=== PATIENT | male | born 1950 | race Caucasian/White ===

== ENCOUNTER 2016-06-06 13:16 | Emergency (ER) | payer SELFPAY ==
--- NOTE | 2016-06-06 13:42 | Emergency Department Report ---
Entered by MICAH HENSON, acting as scribe for SLICK MEJIA PA. Chief Complaint: Head Injury Stated Complaint: HEAD INJURY Time Seen by Provider: 06/06/16 13:33 - HPI History of Present Illness: Patient presents to the ED c/o a head injury that occurred this morning at 09: 00. Pt states that he was at his care home when he slipped on water, and subsequently fell and hit the back of his head. Denies any dizziness. Denies LOC at time of injury. Denies headache. Denies neck pain. Reports EMS cleaned the head laceration after the incident, but notes the laceration is still bleeding. Reports left elbow/arm pain. - ROS Review of Systems: All system are negative unless stated in HPI above. - Exam Vital Signs: Vital Signs 06/06/16 13:23 Temperature 97.5 F L Pulse Rate 96 H Respiratory 18 Rate Blood Pressure 124/80 O2 Sat by Pulse 98 Oximetry Physical Exam: General: well nourished, well developed, nontoxic in appearance, in no acute distress Head: laceration to occipital area Neck: nontender, FROM. Neurologic: A&O x 3, GCS 15. Speech is clear and fluid. Unsteady gait Extremities: left elbow swollen and TTP with small laceration. No cyanosis or clubbing. MSE screening note: Focused history and physical exam performed. Due to findings the following was ordered: ED Medical Decision Making - Medical Decision Making Medical decision making: Patient seen by provider in triage area. Appropriate protocol activated and patient to main ED to be seen by provider ED Disposition for MSE Condition: Stable This documentation as recorded by the scribe,MICAH HENSON,accurately reflects the service I personally performed and the decisions made by ,SLICK MEJIA PA.
--- NOTE | 2016-06-06 13:58 | Cat Scan Report ---
CT HEAD WITHOUT CONTRAST: HISTORY: Closed head injury, unsteady gait. Serial contiguous axial images were obtained through the cranium. Intravenous contrast material was not administered. The ventricles are normal in size and appearance. There is no mass effect or midline shift. No areas of abnormally increased or decreased attenuation are seen. No mass lesion is seen. The mastoid air cells and visualized portions of the sinuses are normal. Left parietal soft tissue swelling is noted. IMPRESSION: No acute intracranial process.
[2016-06-06 14:08] LABS: Urine Drugs of Abuse Note Disclamer
[2016-06-06 14:19] LABS: Basophils % (Auto) 0.7 % (0.0-1.8); Eosinophils % (Auto) 0.4 % (0.0-4.3); Hematocrit 39.5 % (35.5-45.6); Hemoglobin 13.4 gm/dl (11.8-15.2); Mean Corpuscular HGB Conc 34 % (32-34); Mean Corpuscular Hemoglobin 32 pg (28-32); Mean Corpuscular Volume 94 fl (84-94); Platelet Count 278 K/mm3 (140-440); Red Blood Count 4.22 M/mm3 (3.65-5.03); Red Cell Distribution Width 14.7 % (13.2-15.2); White Blood Count 11.6 K/mm3 (4.5-11.0)
[2016-06-06 14:26] LABS: Bilirubin,Urine NEG (Negative); Blood,Urine SM (Negative); Ketones,Urine NEG (Negative); Leukocyte Esterase,Urine NEG (Negative); Nitrite,Urine NEG (Negative); Urobilinogen,Urine < 2.0 mg/dL (<2.0); WBC,Urine < 1.0 /HPF (0.0-6.0)
[2016-06-06 14:29] LABS: INR 0.93 (0.87-1.13)
[2016-06-06 15:09] VITALS: BP 119/68
[2016-06-06] MEDS ORDERED: NORCO 5/325 PO ONE (15:11)
--- NOTE | 2016-06-06 15:15 | Emergency Department Report ---
ED Fall HPI - General Chief Complaint: Head Injury Stated Complaint: HEAD INJURY Time Seen by Provider: 06/06/16 13:33 Source: patient Mode of arrival: Ambulatory Limitations: No Limitations - History of Present Illness Initial Comments: 66-year-old male presents to the emergency department after sustaining a fall at the senior care. Patient states that he slipped on some water and fell backwards, hitting his head on the floor. There was no loss of consciousness. Incident occurred at approximately 9 AM this morning. EMS was called but the patient was not initially transported to the emergency department. Patient was brought to the emergency department because wound on the back of his head was continuing to bleed. Patient is also complaining of pain in his left arm. He states he hit the arm when he fell. Patient denies lightheadedness, nausea, vomiting, or headache. There are no other complaints. MD Complaint: fall -: Sudden, This morning Time: 09:00 Fall From: standing When Fall Occurred: 4-6 hours SECURITY CONSULTANT Fall Witnessed: yes, by living facility s Place Fall Occurred: other (senior care) Loss of Consciousness: none Prolonged Down Time?: no Symptoms Prior to Fall: none Location: head Location - Extremities: Left: Elbow Severity: mild Severity scale (0 -10): 4 Quality: aching Context: tripped/slipped Associated Symptoms: denies - Related Data Previous Rx's Medication Instructions Recorded Last Taken Type HYDROcodone/APAP 5-325 [[place] 1 each PO Q6HR PRN #14 tablet 06/06/16 Unknown Rx 5/325] Allergies Allergy/AdvReac Type Severity Reaction Status Date / Time No Known Allergies Allergy Unverified 06/06/16 13:28 ED Review of Systems ROS: Stated complaint: HEAD INJURY Other details as noted in HPI Comment: All other systems reviewed and negative Musculoskeletal: as per HPI, arthralgia ED Past Medical Hx - Past Medical History Previous Medical History?: Yes Hx Psychiatric Treatment: Yes (schizphrenia) - Surgical History Past Surgical History?: No - Family History Family history: no significant - Social History Smoking Status: Current Every Day Smoker Substance Use Type: None - Medications Home Medications: Home Medications Medication Instructions Recorded Confirmed Last Taken Type HYDROcodone/APAP 5-325 [[place] 1 each PO Q6HR PRN #14 tablet 06/06/16 Unknown Rx 5/325] ED Physical Exam - General Limitations: No Limitations General appearance: alert, in no apparent distress - Head Head exam: Present: normocephalic, other (abrasion noted to the occipital scalp , no active bleeding) - Eye Eye exam: Present: normal appearance, PERRL, EOMI - ENT ENT exam: Present: normal exam, normal orophraynx, mucous membranes moist - Neck Neck exam: Present: normal inspection, full ROM. Absent: tenderness - Respiratory Respiratory exam: Present: normal lung sounds bilaterally. Absent: respiratory distress - Cardiovascular Cardiovascular Exam: Present: regular rate, normal rhythm, normal heart sounds - GI/Abdominal GI/Abdominal exam: Present: soft, normal bowel sounds. Absent: distended, tenderness - Extremities Exam Extremities exam: Present: normal inspection, full ROM. Absent: tenderness - Back Exam Back exam: Present: normal inspection, full ROM. Absent: tenderness - Neurological Exam Neurological exam: Present: alert, oriented X3. Absent: motor sensory deficit - Skin Skin exam: Present: warm, dry, intact ED Course Vital Signs 06/06/16 06/06/16 13:23 15:08 Temperature 97.5 F L Pulse Rate 96 H 90 Respiratory 18 17 Rate Blood Pressure 124/80 Blood Pressure 119/68 [Left] O2 Sat by Pulse 98 100 Oximetry ED Medical Decision Making - Lab Data Result diagrams: 06/06/16 13:43 - Radiology Data Radiology results: image reviewed CT of the head shows no acute intracranial abnormality. - Medical Decision Making Imaging results reviewed and discussed with the patient and senior care employee. There is no active bleeding at this time. Head wound will be cleaned and a new dressing applied. Patient will be discharged back to the senior care at this time. - Differential Diagnosis brazen, contusion, closed head injury, subdural hematoma Critical care attestation.: If time is entered above; I have spent that time in minutes in the direct care of this critically ill patient, excluding procedure time. ED Disposition Clinical Impression: Scalp contusion Qualifiers: Encounter type: initial encounter Qualified Code(s): S00.03XA - Contusion of scalp, initial encounter Disposition: DISCHARGED TO HOME OR SELFCARE Is pt being admited?: No Condition: Stable Instructions: Scalp Contusion in Adults (ED) Prescriptions: HYDROcodone/APAP 5-325 [[place] 5/325] 1 each PO Q6HR PRN #14 tablet PRN Reason: Pain Referrals: PRIMARY CARE, [Primary Care Provider] - 3-5 Days Time of Disposition: 15:18
== END 2016-06-06 15:30 | disposition home or self-care (01) ==
LOC: ED 13:16
DX: S00.03XA Contusion of scalp, initial encounter (principal); F20.9 Schizophrenia, unspecified; F17.200 Nicotine dependence, unspecified, uncomplicated; W19.XXXA Unspecified fall, initial encounter; Y93.89 Activity, other specified; Y99.9 Unspecified external cause status; Y92.410 Unspecified street and highway as the place of occurrence of the external cause
CPT/HCPCS: 36415; 70450; 80307; 81001; 85025; 85610; 85730; 99284; G0480; 80320

== ENCOUNTER 2016-07-29 09:18 | Inpatient (IN) | payer MEDICARE ==
[2016-07-29] MEDS ORDERED: NACL 0.9% 1000 ML 1,000 ML IV ONE (10:00)
[2016-07-29 10:37] LABS: Basophils % (Auto) 0.6 % (0.0-1.8); Mean Corpuscular HGB Conc 36 % (32-34); Mean Corpuscular Hemoglobin 33 pg (28-32); Mean Corpuscular Volume 90 fl (84-94); Platelet Count 327 K/mm3 (140-440); Red Blood Count 4.05 M/mm3 (3.65-5.03); Red Cell Distribution Width 14.6 % (13.2-15.2); White Blood Count 19.7 K/mm3 (4.5-11.0)
[2016-07-29 10:41] LABS: Hematocrit 36.6 % (35.5-45.6); Hemoglobin 13.3 gm/dl (11.8-15.2)
[2016-07-29 10:46] LABS: INR 1.07 (0.87-1.13)
[2016-07-29 10:49] LABS: Partial Thromboplastin Time 27.4 Sec. (24.2-36.6)
[2016-07-29 10:58] LABS: Alanine Aminotransferase 16 units/L (7-56); Albumin 3.4 g/dL (3.9-5); Albumin/Globulin Ratio 1.2 %; Alkaline Phosphatase 65 units/L (35-129); Anion Gap 18 mmol/L; Blood Urea Nitrogen 10 mg/dL (9-20); Calcium 8.2 mg/dL (8.4-10.2); Carbon Dioxide 22 mmol/L (22-30); Chloride 75.8 mmol/L (98-107); Glucose 132 mg/dL (75-100); Lipase 24 units/L (13-60); Potassium 4.2 mmol/L (3.6-5.0); Total Protein 6.3 g/dL (6.3-8.2)
--- NOTE | 2016-07-29 11:16 | Emergency Department Report ---
ED GI Bleed HPI - General Chief complaint: GI Bleed Stated complaint: FALL/EMESIS Time Seen by Provider: 07/29/16 10:27 Source: patient, EMS, RN notes reviewed Mode of arrival: Stretcher Limitations: Other - History of Present Illness Initial comments: 66-year-old male presents to the emergency department via EMS from a local [facility] for evaluation of vomiting blood. Per report, the patient had an unwitnessed fall last night. This morning, patient reportedly vomited 2 times containing coffee-ground emesis. Patient states that he did vomit twice, but denies seeing any blood. Patient denies pain. There are no other complaints. MD complaint: coffee ground emesis -: Gradual, This morning Radiation: none Severity scale (0 -10): 0 Quality: painless Consistency: now resolved Improves with: none Worsens with: none Associated Symptoms: denies other symptoms Treatments Prior to Arrival: none - Related Data Previous Rx's Medication Instructions Recorded Last Taken Type Benztropine [Cogentin] 0.5 mg PO HS #30 tablet 07/27/16 Unknown Rx HYDROcodone/APAP 5-325 [[place] 1 each PO Q6HR PRN #14 tablet 07/27/16 Unknown Rx 5-325 mg TAB] risperiDONE [RisperDAL] 0.5 mg PO HS #30 tablet 07/27/16 Unknown Rx Allergies Allergy/AdvReac Type Severity Reaction Status Date / Time No Known Allergies Allergy Unverified 06/06/16 13:28 ED Review of Systems ROS: Stated complaint: FALL/EMESIS Other details as noted in HPI Comment: All other systems reviewed and negative Gastrointestinal: hematemesis ED Past Medical Hx - Past Medical History Previous Medical History?: Yes Hx Hypertension: Yes Hx Psychiatric Treatment: Yes (schizphrenia) Additional medical history: Metabolic encephalopathy - Surgical History Past Surgical History?: No - Family History Family history: no significant - Social History Smoking Status: Unknown if ever smoked - Medications Home Medications: Home Medications Medication Instructions Recorded Confirmed Last Taken Type Benztropine [Cogentin] 0.5 mg PO HS #30 tablet 07/27/16 Unknown Rx HYDROcodone/APAP 5-325 [[place] 1 each PO Q6HR PRN #14 tablet 07/27/16 Unknown Rx 5-325 mg TAB] risperiDONE [RisperDAL] 0.5 mg PO HS #30 tablet 07/27/16 Unknown Rx ED Physical Exam - General Limitations: Other General appearance: alert, in no apparent distress - Head Head exam: Present: atraumatic, normocephalic - Eye Eye exam: Present: normal appearance, PERRL, EOMI - ENT ENT exam: Present: normal orophraynx, mucous membranes moist, other (poor dentition) - Neck Neck exam: Present: normal inspection, full ROM. Absent: tenderness - Respiratory Respiratory exam: Present: normal lung sounds bilaterally. Absent: respiratory distress - Cardiovascular Cardiovascular Exam: Present: regular rate, normal rhythm, normal heart sounds - GI/Abdominal GI/Abdominal exam: Present: soft, normal bowel sounds. Absent: distended, tenderness - Extremities Exam Extremities exam: Present: full ROM, other (skin tear noted to the ulnar aspect of the right forearm. No active bleeding is noted.). Absent: tenderness - Back Exam Back exam: Present: normal inspection, full ROM. Absent: tenderness - Neurological Exam Neurological exam: Present: alert. Absent: oriented X3 (patient is alert to person only.), motor sensory deficit - Skin Skin exam: Present: warm, dry, intact ED Medical Decision Making - Lab Data Result diagrams: 07/29/16 10:20 07/29/16 10:20 - EKG Data -: EKG Interpreted by Me EKG shows normal: sinus rhythm, axis, intervals, QRS complexes Rate: normal - EKG Data When compared to previous EKG there are: previous EKG unavailable Interpretation: nonspecific ST-T wave niki - Radiology Data Radiology results: report reviewed, image reviewed CT of the head and cervical spine reveal no acute traumatic injuries. - Medical Decision Making Lab and imaging results reviewed. Patient noted to be profoundly hyponatremic. Labs were obtained prior to IV placement for IV fluids. Review of previous labs show that the patient has had normal to low-normal sodiums. He had blood drawn yesterday in the fdc showing a sodium of 121. There has been no further emesis. A Kyburz-Blatchford score of 0 was calculated. Will contact the hospitalist for admission. - Differential Diagnosis GI bleed, gastritis, anemia, closed head injury Critical care attestation.: If time is entered above; I have spent that time in minutes in the direct care of this critically ill patient, excluding procedure time. ED Disposition Clinical Impression: Acute hyponatremia Disposition: OP ADMIT IP TO THIS HOSP Is pt being admited?: Yes Condition: Stable Referrals: PRIMARY CARE, [Primary Care Provider] - 3-5 Days Forms: Accompanied Note Time of Disposition: 13:08
[2016-07-29 11:17] LABS: Sodium 111 mmol/L (137-145)
--- NOTE | 2016-07-29 11:57 | Cat Scan Report ---
CT HEAD WITHOUT CONTRAST: HISTORY: Head injury. Serial contiguous axial images were obtained through the cranium. Intravenous contrast material was not administered. The ventricles are normal in size and appearance. There is no mass effect or midline shift. No areas of abnormally increased or decreased attenuation are seen. No mass lesion is seen. The mastoid air cells and visualized portions of the sinuses are normal. IMPRESSION: Cranial CT scan within normal limits. No change since 07/15/16.
--- NOTE | 2016-07-29 12:07 | Cat Scan Report ---
CT SCAN OF THE CERVICAL SPINE: HISTORY: Neck injury after fall. TECHNIQUE: Contiguous 1.25 mm axial images of the cervical spine were obtained. Sagittal and coronal reformatted images. FINDINGS: There is normal alignment of the cervical spine. The body, pedicles and posterior ligaments appear normal. No evidence of fracture or subluxation is seen. There is moderate circumferential spurring and disc space narrowing at C5-6 and C6-7. There is moderate left neural foraminal narrowing at these levels estimated at 50%. The remaining levels are within normal limits. The spinal canal appears normal. The prevertebral soft tissues appear normal. IMPRESSION: Cervical spondylosis. No acute process is noted.
--- NOTE | 2016-07-29 13:00 | Admit Criteria Form ---
Admission Criteria Documentation: HYPONATREMIA; HYPERNATREMIA; HYPOKALEMIA; HYPERKALEMIA; HYPOCALCEMIA; HYPERCALCEMIA Clinical Indications for Inpatient Care (Place 'X' for any and all applicable criteria): Ongoing inpatient care may be indicated for ANY ONE of the following [G](1)(2)(3 )(5): [X]I. Hyponatremia with ANY ONE of the following: [X]a) Sodium less than 130 mEq/L (mmol/L) (new) (6)(22) [ ]b) Sodium less than 135 mEq/L (mmol/L) with ANY ONE of the following: [ ]i) Severe medical etiology requiring inpatient management (eg, heart failure, hypovolemia) [ ]ii) Altered mental status [ ]iii) Seizures [ ]II. Hypernatremia with ANY ONE of the following: [ ]a) Sodium greater than 155 mEq/L (mmol/L) [ ]b) Sodium greater than 150 mEq/L (mmol/L) with ANY ONE of the following: [ ] i) Altered mental status [ ]ii) Seizures [ ]iii) Severe medical etiology (eg, hypovolemia, diabetes insipidus) [ ]iv) Severe weakness [ ]v) Severe medical etiology (eg, hemolysis, infection, drug overdose) [ ]III. Hypokalemia with ANY ONE of the following: [ ]a) Potassium less than 2.5 mEq/L (mmol/L) despite outpatient and emergency treatment [ ]b) Potassium less than 3.0 mEq/L (mmol/L) with ANY ONE of the following: [ ]i) Weakness [ ]ii) Cardiac abnormality (eg, arrhythmia, conduction disturbance) [ ]iii) Cardiac ischemia [ ]iv) Ileus [ ]v) Ongoing medical cause requiring inpatient management. ( e.g., acute renal wasting, SIADH) [ ]vi) Other severe symptoms [ ] IV. Hyperkalemia with ANY ONE of the following: [ ]a) Potassium greater than 6.5 mEq/L (mmol/L) [ ]b) Potassium greater than 5 mEq/L (mmol/L) with ANY ONE of the following: [ ]i) Severe ECG findings [H] [ ]ii) Acute worsening of renal failure (creatinine greater than 2.5 mg/dL (221 micromoles/L) or significant elevation for age and size) [ ] V. Hypocalcemia with ANY ONE of the following: [ ]a) Calcium less than 7 mg/dL (1.75 mmol/L) despite outpatient and emergency treatment(19) [ ]b) Calcium less than 8 mg/dL (2 mmol/L) with significant symptoms or findings; examples include: [ ]i) Cardiac abnormality (eg, arrhythmia or conduction disturbance) [ ]ii) Altered mental status [ ]iii) Seizures [ ]iv) Breathing difficulty [ ]v) Muscle spasms [ ]. Hypercalcemia with ANY ONE of the following: [ ]a) Calcium greater than 14 mg/dL (3.5 mmol/L) [ ]b) Calcium greater than 12 mg/dL (3 mmol/L) with ANY ONE of the following: [ ]i) Significant dehydration or hypovolemia as indicated by ANY ONE of the following(2): [ ]1. Clinically significant dehydration as indicated by ANY ONE of the following: [ ]A. Acute loss of weight from baseline (5% of body weight in adults, 9% in pediatric patients) [ ]B. Hemodynamic instability [ ]C. Acute renal failure [ ]D. Serum sodium greater than 150 mEq/L (mmol/L) [ ]2) Dehydration that is persistent indicated by ALL of the following: [ ]A. Oral rehydration therapy not tolerated or insufficient to adequately correct dehydration [ ]B. Appropriate intravenous treatment (eg, fluids ) does not readily correct dehydration ie, after 12 to 24 hours of treatment) [ ]ii) Significant symptoms or findings; examples include: [ ]1) Altered mental status [ ]2) Cardiac abnormality (eg, arrhythmia, conduction disturbance) [ ]3) Cardiac abnormality (eg, arrhythmia, conduction disturbance) The original [employer] content created by [employer] has been revised. The portions of the content which have been revised are identified through the use of italic text or in bold, and [facility] [employer] has neither reviewed nor approved the modified material. All other unmodified content is copyright [facility] [employer] Please see references footnoted in the original [facility] [employer] edition 2016 Admission Criteria Met: Yes
[2016-07-29 13:59] LABS: Bilirubin,Urine NEG (Negative); Blood,Urine MOD (Negative); Ketones,Urine NEG (Negative); Leukocyte Esterase,Urine NEG (Negative); Nitrite,Urine NEG (Negative); Protein,Urine <15 mg/dL mg/dL (Negative); Urobilinogen,Urine < 2.0 mg/dL (<2.0)
[2016-07-29 14:03] LABS: WBC,Urine < 1.0 /HPF (0.0-6.0)
--- NOTE | 2016-07-29 21:39 | History and Physical Report ---
History of Present Illness Date of examination: 07/29/16 Date of admission: 07/29/16 13:09 Chief complaint: Altered sensorium Vomiting x2 Denies Blood in Vomitus History of present illness: History of Present Illness 66-year-old male presents to the emergency department via EMS from a local alf for evaluation of vomiting blood. Per report, the patient had an unwitnessed fall last night. This morning, patient reportedly vomited 2 times containing coffee-ground emesis. Patient states that he did vomit twice, but denies seeing any blood. Patient denies pain. There are no other complaints. MD complaint: coffee ground emesis -: Gradual, This morning Radiation: none Severity scale (0 -10): 0 Quality: painless Consistency: now resolved Improves with: none Worsens with: none Associated Symptoms: denies other symptoms Treatments Prior to Arrival: none - Related Data Previous Rx's Medication Instructions Recorded Last Taken Type Benztropine [Cogentin] 0.5 mg PO HS #30 tablet 07/27/16 Unknown Rx HYDROcodone/APAP 5-325 [[place]ug[place] 1 each PO Q6HR PRN #14 tablet 07/27/16 Unknown Rx 5-325 mg TAB] risperiDONE [RisperDAL] 0.5 mg PO HS #30 tablet 07/27/16 Unknown Rx Allergies Allergy/AdvReac Type Severity Reaction Status Date / Time No Known Allergies Allergy Unverified 06/06/16 13:28 ED Review of Systems ROS: Stated complaint: FALL/EMESIS Other details as noted in HPI Comment: All other systems reviewed and negative Gastrointestinal: hematemesis ED Past Medical Hx - Past Medical History Previous Medical History?: Yes Hx Hypertension: Yes Hx Psychiatric Treatment: Yes (schizphrenia) Additional medical history: Metabolic encephalopathy - Surgical History Past Surgical History?: No - Family History Family history: no significant - Social History Smoking Status: Unknown if ever smoked - Medications Home Medications: Home Medications Medication Instructions Recorded Confirmed Last Taken Type Benztropine [Cogentin] 0.5 mg PO HS #30 tablet 07/27/16 Unknown Rx HYDROcodone/APAP 5-325 [[place] 1 each PO Q6HR PRN #14 tablet 07/27/16 Unknown Rx 5-325 mg TAB] risperiDONE [RisperDAL] 0.5 mg PO HS #30 tablet 07/27/16 Unknown Rx Medications and Allergies Allergies Allergy/AdvReac Type Severity Reaction Status Date / Time No Known Allergies Allergy Unverified 06/06/16 13:28 Home Medications Medication Instructions Recorded Confirmed Last Taken Type Benztropine [Cogentin] 0.5 mg PO HS #30 tablet 07/27/16 07/29/16 07/27/16 Rx HYDROcodone/APAP 5-325 [[place] 1 each PO Q6HR PRN #14 tablet 07/27/16 07/29/16 Unknown Rx 5-325 mg TAB] risperiDONE [RisperDAL] 0.5 mg PO HS #30 tablet 07/27/16 07/29/16 07/27/16 Rx Exam - Physical Exam Narrative exam: Lying comfortably - Constitutional Vitals: Temp Pulse Resp BP Pulse Ox 98.1 F 82 18 113/53 97 07/29/16 17:45 07/29/16 17:45 07/29/16 17:45 07/29/16 17:45 07/29/16 17:45 General appearance: Present: no acute distress, well-nourished - EENT Eyes: Present: PERRL ENT: hearing intact, clear oral mucosa - Neck Neck: Present: supple, normal ROM - Respiratory Respiratory effort: normal Respiratory: bilateral: CTA - Cardiovascular Heart rate: 80 Rhythm: regular Heart Sounds: Present: S1 & S2. Absent: rub, click - Extremities Extremities: no ischemia, pulses symmetrical, No edema Peripheral Pulses: within normal limits - Abdominal General gastrointestinal: Present: soft, non-tender, non-distended, normal bowel sounds Male genitourinary: Present: normal - Rectal Rectal Exam: other (OB negative) - Integumentary Integumentary: Present: clear, warm, dry - Musculoskeletal Musculoskeletal: gait normal, strength equal bilaterally - Psychiatric Psychiatric: appropriate mood/affect, intact judgment & insight - Neurologic Neurologic: CNII-XII intact, moves all extremities - Allied Health Allied health notes reviewed: nursing Results - Labs CBC & Chem 7: 07/29/16 10:20 07/29/16 22:48 Labs: Laboratory Last Values WBC 19.7 K/mm3 (4.5-11.0) H 07/29/16 10:20 RBC 4.05 M/mm3 (3.65-5.03) 07/29/16 10:20 Hgb 13.3 gm/dl (11.8-15.2) 07/29/16 10:20 Hct 36.6 % (35.5-45.6) 07/29/16 10:20 MCV 90 fl (84-94) 07/29/16 10:20 MCH 33 pg (28-32) H 07/29/16 10:20 MCHC 36 % (32-34) H 07/29/16 10:20 RDW 14.6 % (13.2-15.2) 07/29/16 10:20 Plt Count 327 K/mm3 (140-440) 07/29/16 10:20 Lymph % (Auto) 5.8 % (13.4-35.0) L 07/29/16 10:20 [place] % (Auto) 7.0 % (0.0-7.3) 07/29/16 10:20 Eos % (Auto) 0.0 % (0.0-4.3) 07/29/16 10:20 Baso % (Auto) 0.6 % (0.0-1.8) 07/29/16 10:20 Lymph # 1.1 K/mm3 (1.2-5.4) L 07/29/16 10:20 [place] # 1.4 K/mm3 (0.0-0.8) H 07/29/16 10:20 Eos # 0.0 K/mm3 (0.0-0.4) 07/29/16 10:20 Baso # 0.1 K/mm3 (0.0-0.1) 07/29/16 10:20 Seg Neutrophils % 86.6 % (40.0-70.0) H 07/29/16 10:20 Seg Neutrophils # 17.1 K/mm3 (1.8-7.7) H 07/29/16 10:20 PT 13.8 Sec. (12.2-14.9) 07/29/16 10:20 INR 1.07 (0.87-1.13) 07/29/16 10:20 APTT 27.4 Sec. (24.2-36.6) 07/29/16 10:20 Sodium 114 mmol/L (137-145) L* 07/29/16 14:00 Potassium 4.2 mmol/L (3.6-5.0) 07/29/16 10:20 Chloride 75.8 mmol/L (98-107) L 07/29/16 10:20 Carbon Dioxide 22 mmol/L (22-30) 07/29/16 10:20 Anion Gap 18 mmol/L 07/29/16 10:20 BUN 10 mg/dL (9-20) 07/29/16 10:20 Creatinine 0.2 mg/dL (0.8-1.5) L 07/29/16 10:20 Estimated GFR > 60 ml/min 07/29/16 10:20 BUN/Creatinine Ratio 50.00 % 07/29/16 10:20 Glucose 132 mg/dL (75-100) H 07/29/16 10:20 Calcium 8.2 mg/dL (8.4-10.2) L 07/29/16 10:20 Total Bilirubin 1.10 mg/dL (0.1-1.2) 07/29/16 10:20 AST 19 units/L (5-40) 07/29/16 10:20 ALT 16 units/L (7-56) 07/29/16 10:20 Alkaline Phosphatase 65 units/L (35-129) 07/29/16 10:20 Total Protein 6.3 g/dL (6.3-8.2) 07/29/16 10:20 Albumin 3.4 g/dL (3.9-5) L 07/29/16 10:20 Albumin/Globulin Ratio 1.2 % 07/29/16 10:20 Lipase 24 units/L (13-60) 07/29/16 10:20 Urine Color Straw (Yellow) 07/29/16 13:41 Urine Turbidity Clear (Clear) 07/29/16 13:41 Urine pH 7.0 (5.0-7.0) 07/29/16 13:41 Ur Specific [place] 1.003 (1.003-1.030) 07/29/16 13:41 Urine Protein <15 mg/dl mg/dL (Negative) 07/29/16 13:41 Urine Glucose (UA) Neg mg/dL (Negative) 07/29/16 13:41 Urine Ketones Neg mg/dL (Negative) 07/29/16 13:41 Urine Blood Mod (Negative) 07/29/16 13:41 Urine Nitrite Neg (Negative) 07/29/16 13:41 Urine Bilirubin Neg (Negative) 07/29/16 13:41 Urine Ictotest Negative (Negative) 07/29/16 13:41 Urine Urobilinogen < 2.0 mg/dL (<2.0) 07/29/16 13:41 Ur Leukocyte Esterase Neg (Negative) 07/29/16 13:41 Urine WBC (Auto) < 1.0 /HPF (0.0-6.0) 07/29/16 13:41 Urine RBC (Auto) 5.0 /HPF (0.0-6.0) 07/29/16 13:41 Blood Type A POSITIVE 07/29/16 10:20 Antibody Screen TNR 07/29/16 10:20 VIOLA Antibody Screen Negative 07/29/16 10:20 Short CBC 07/29/16 Range/Units 10:20 WBC 19.7 H (4.5-11.0) K/mm3 Hgb 13.3 (11.8-15.2) gm/dl Hct 36.6 (35.5-45.6) % Plt Count 327 (140-440) K/mm3 BMP 07/29/16 07/29/16 07/29/16 10:20 14:00 22:48 Sodium 111 L* D 114 L* 125 L D Potassium 4.2 4.0 Chloride 75.8 L 89.9 L Carbon Dioxide 22 23 BUN 10 Creatinine 0.2 L Glucose 132 H Calcium 8.2 L Liver Function 07/29/16 Range/Units 10:20 Total Bilirubin 1.10 (0.1-1.2) mg/dL AST 19 (5-40) units/L ALT 16 (7-56) units/L Alkaline Phosphatase 65 (35-129) units/L Albumin 3.4 L (3.9-5) g/dL Urine 07/29/16 Range/Units 13:41 Urine Color Straw (Yellow) Urine pH 7.0 (5.0-7.0) Ur Specific [place] 1.003 (1.003-1.030) Urine Protein <15 mg/dl (Negative) mg/dL Urine Glucose (UA) Neg (Negative) mg/dL - Imaging and Cardiology CT Scan - head: report reviewed (Negative) Imaging and Cardiology: CT Spine negative Assessment and Plan Advance Directives: Yes (Full code) VTE prophylaxis?: Chemical Plan of care discussed with patient/family: Yes - Patient Problems (1) Acute hyponatremia Current Visit: Yes Status: Acute Plan to address problem: Check Lytes SIADH in DDX 3 percent NS at 42 ml for a total of 500 ml to be given (2) Altered mental status, unspecified Current Visit: No Status: Acute Qualifiers: Altered mental status type: transient alteration of awareness Coma depth: C Coma timing: C Qualified Code(s): R40.4 - Transient alteration of awareness Plan to address problem: Sec to Hyponatremia (3) Upper GI bleed Current Visit: Yes Status: Acute Plan to address problem: Unlikely OB negative H/h stable Protonix for now No GI consult (4) Schizophrenia Current Visit: Yes Status: Chronic Qualifiers: Schizophrenia type: undifferentiated schizophrenia Qualified Code(s): F20.3 - Undifferentiated schizophrenia Plan to address problem: Cont Risperdal (5) DVT prophylaxis Current Visit: Yes Status: Acute Plan to address problem: on scd's
[2016-07-29] MEDS ORDERED: NORCO 5/325 PO PRN (21:42)
[2016-07-29] MEDS ORDERED: NACL 3% 500 ML IV ONE (22:30)
[2016-07-29] MEDS ORDERED: PROTONIX 80 MG in NACL 0.9% 100 ML IV SCH ×2 (23:00→23:45)
[2016-07-29 23:30] LABS: Chloride 89.9 mmol/L (98-107)
[2016-07-29] MEDS: RisperDAL PO SCH (23:53)
[2016-07-29] MEDS: COGENTIN PO SCH (23:53)
--- NOTE | 2016-07-30 14:50 | Progress Note ---
Assessment and Plan Assessment and plan: Hyponatremia. 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 Resolving. Continue normal saline. Inguinal hernia. Consider scrotal ultrasound and surgical consultation. However, patient is aware and states that he does not want any further treatment , evaluation or surgery. Metabolic Encephalopathy. Resolved. Patient is alert and oriented. Schizophrenia. Continue Risperdal. Mental health evaluation. Coffee-ground emesis. Patient denies any history of coffee-ground emesis or hematemesis. Patient does report vomiting of gastric contents. Continue to follow H&H. DVT prophylaxis. Continue SCDs. Disposition. If H&H is stable and patient does not wish to pursue further treatment, consider discharge back to retirement. History Interval history: Patient is somnolent but arousable. Patient with a large inguinal hernia. Upon my interview with regards to the history of the hernia patient states that he is aware and does not want any intervention. Hospitalist Physical - Constitutional Vitals: Temp Pulse Resp BP Pulse Ox 100 F H 85 18 108/59 98 07/30/16 10:07/30/16 10:07/30/16 10:00 07/30/16 10:07/30/16 10:00 General appearance: Present: no acute distress, well-nourished - EENT Eyes: Present: PERRL, EOM intact ENT: hearing intact, clear oral mucosa, dentition normal - Neck Neck: Present: supple, normal ROM - Respiratory Respiratory effort: normal Respiratory: bilateral: CTA - Cardiovascular Rhythm: regular Heart Sounds: Present: S1 & S2. Absent: gallop, rub - Extremities Extremities: no ischemia, No edema, Full ROM - Abdominal General gastrointestinal: soft, non-tender, non-distended, normal bowel sounds - Integumentary Integumentary: Present: clear, warm, dry - Neurologic Neurologic: CNII-XII intact, moves all extremities Results - Labs CBC & Chem 7: 07/29/16 10:20 07/29/16 22:48 Labs: Laboratory Last Values WBC 19.7 K/mm3 (4.5-11.0) H 07/29/16 10:20 RBC 4.05 M/mm3 (3.65-5.03) 07/29/16 10:20 Hgb 13.3 gm/dl (11.8-15.2) 07/29/16 10:20 Hct 36.6 % (35.5-45.6) 07/29/16 10:20 MCV 90 fl (84-94) 07/29/16 10:20 MCH 33 pg (28-32) H 07/29/16 10:20 MCHC 36 % (32-34) H 07/29/16 10:20 RDW 14.6 % (13.2-15.2) 07/29/16 10:20 Plt Count 327 K/mm3 (140-440) 07/29/16 10:20 Lymph % (Auto) 5.8 % (13.4-35.0) L 07/29/16 10:20 [place] % (Auto) 7.0 % (0.0-7.3) 07/29/16 10:20 Eos % (Auto) 0.0 % (0.0-4.3) 07/29/16 10:20 Baso % (Auto) 0.6 % (0.0-1.8) 07/29/16 10:20 Lymph # 1.1 K/mm3 (1.2-5.4) L 07/29/16 10:20 [place] # 1.4 K/mm3 (0.0-0.8) H 07/29/16 10:20 Eos # 0.0 K/mm3 (0.0-0.4) 07/29/16 10:20 Baso # 0.1 K/mm3 (0.0-0.1) 07/29/16 10:20 Seg Neutrophils % 86.6 % (40.0-70.0) H 07/29/16 10:20 Seg Neutrophils # 17.1 K/mm3 (1.8-7.7) H 07/29/16 10:20 PT 13.8 Sec. (12.2-14.9) 07/29/16 10:20 INR 1.07 (0.87-1.13) 07/29/16 10:20 APTT 27.4 Sec. (24.2-36.6) 07/29/16 10:20 Sodium 125 mmol/L (137-145) L D 07/29/16 22:48 Potassium 4.0 mmol/L (3.6-5.0) 07/29/16 22:48 Chloride 89.9 mmol/L (98-107) L 07/29/16 22:48 Carbon Dioxide 23 mmol/L (22-30) 07/29/16 22:48 Anion Gap 16 mmol/L 07/29/16 22:48 BUN 10 mg/dL (9-20) 07/29/16 10:20 Creatinine 0.2 mg/dL (0.8-1.5) L 07/29/16 10:20 Estimated GFR > 60 ml/min 07/29/16 10:20 BUN/Creatinine Ratio 50.00 % 07/29/16 10:20 Glucose 132 mg/dL (75-100) H 07/29/16 10:20 Calcium 8.2 mg/dL (8.4-10.2) L 07/29/16 10:20 Total Bilirubin 1.10 mg/dL (0.1-1.2) 07/29/16 10:20 AST 19 units/L (5-40) 07/29/16 10:20 ALT 16 units/L (7-56) 07/29/16 10:20 Alkaline Phosphatase 65 units/L (35-129) 07/29/16 10:20 Total Protein 6.3 g/dL (6.3-8.2) 07/29/16 10:20 Albumin 3.4 g/dL (3.9-5) L 07/29/16 10:20 Albumin/Globulin Ratio 1.2 % 07/29/16 10:20 Lipase 24 units/L (13-60) 07/29/16 10:20 Urine Color Straw (Yellow) 07/29/16 13:41 Urine Turbidity Clear (Clear) 07/29/16 13:41 Urine pH 7.0 (5.0-7.0) 07/29/16 13:41 Ur Specific [place] 1.003 (1.003-1.030) 07/29/16 13:41 Urine Protein <15 mg/dl mg/dL (Negative) 07/29/16 13:41 Urine Glucose (UA) Neg mg/dL (Negative) 07/29/16 13:41 Urine Ketones Neg mg/dL (Negative) 07/29/16 13:41 Urine Blood Mod (Negative) 07/29/16 13:41 Urine Nitrite Neg (Negative) 07/29/16 13:41 Urine Bilirubin Neg (Negative) 07/29/16 13:41 Urine Ictotest Negative (Negative) 07/29/16 13:41 Urine Urobilinogen < 2.0 mg/dL (<2.0) 07/29/16 13:41 Ur Leukocyte Esterase Neg (Negative) 07/29/16 13:41 Urine WBC (Auto) < 1.0 /HPF (0.0-6.0) 07/29/16 13:41 Urine RBC (Auto) 5.0 /HPF (0.0-6.0) 07/29/16 13:41 Blood Type A POSITIVE 07/29/16 10:20 Antibody Screen TNR 07/29/16 10:20 VIOLA Antibody Screen Negative 07/29/16 10:20
[2016-07-30] MEDS: RisperDAL PO SCH (21:17)
[2016-07-30] MEDS: COGENTIN PO SCH (21:17)
[2016-07-30] MEDS: PROTONIX PO SCH (21:18)
[2016-07-31] MEDS: PROTONIX PO SCH (10:56)
[2016-07-31 11:06] LABS: Anion Gap 14 mmol/L; Blood Urea Nitrogen 5 mg/dL (9-20); Calcium 8.4 mg/dL (8.4-10.2); Carbon Dioxide 24 mmol/L (22-30); Chloride 91.2 mmol/L (98-107); Glucose 108 mg/dL (75-100); Potassium 3.5 mmol/L (3.6-5.0); Sodium 126 mmol/L (137-145)
[2016-07-31 11:08] LABS: Basophils % (Auto) 1.1 % (0.0-1.8); Eosinophils % (Auto) 0.7 % (0.0-4.3); Hematocrit 33.5 % (35.5-45.6); Hemoglobin 11.6 gm/dl (11.8-15.2); Mean Corpuscular HGB Conc 35 % (32-34); Mean Corpuscular Hemoglobin 33 pg (28-32); Mean Corpuscular Volume 94 fl (84-94); Platelet Count 317 K/mm3 (140-440); Red Blood Count 3.55 M/mm3 (3.65-5.03); Red Cell Distribution Width 14.5 % (13.2-15.2)
--- NOTE | 2016-07-31 11:50 | Progress Note ---
Assessment and Plan Assessment and plan: Hyponatremia. 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 Resolving. Continue normal saline. Lasix x 1 Inguinal hernia. Consider scrotal ultrasound and surgical consultation. However, patient is aware and states that he does not want any further treatment , evaluation or surgery. Metabolic Encephalopathy. Resolved. Patient is alert and oriented. Schizophrenia. Continue Risperdal. Mental health evaluation. Coffee-ground emesis. Patient denies any history of coffee-ground emesis or hematemesis. Patient does report vomiting of gastric contents. Continue to follow H&H. DVT prophylaxis. Continue SCDs. Disposition. If H&H is stable and patient does not wish to pursue further treatment, [facility]. History Interval history: Patient is somnolent but arousable. Patient with a large inguinal hernia. Upon my interview with regards to the history of the hernia patient states that he is aware and does not want any intervention. Hospitalist Physical - Constitutional Vitals: Temp Pulse Resp BP Pulse Ox 97.9 F 80 16 97/50 98 07/31/16 09:52 07/31/16 09:52 07/31/16 09:52 07/31/16 09:52 07/31/16 09:52 General appearance: Present: no acute distress, well-nourished - EENT Eyes: Present: PERRL, EOM intact ENT: hearing intact, clear oral mucosa, dentition normal - Neck Neck: Present: supple, normal ROM - Respiratory Respiratory effort: normal Respiratory: bilateral: CTA - Cardiovascular Rhythm: regular Heart Sounds: Present: S1 & S2. Absent: gallop, rub - Extremities Extremities: no ischemia, No edema, Full ROM - Abdominal General gastrointestinal: soft, non-tender, non-distended, normal bowel sounds - Integumentary Integumentary: Present: clear, warm, dry - Neurologic Neurologic: CNII-XII intact, moves all extremities Results - Labs CBC & Chem 7: 07/31/16 10:21 07/31/16 10:21 Labs: Laboratory Last Values WBC 8.0 K/mm3 (4.5-11.0) 07/31/16 10:21 RBC 3.55 M/mm3 (3.65-5.03) L 07/31/16 10:21 Hgb 11.6 gm/dl (11.8-15.2) L 07/31/16 10:21 Hct 33.5 % (35.5-45.6) L 07/31/16 10:21 MCV 94 fl (84-94) D 07/31/16 10:21 MCH 33 pg (28-32) H 07/31/16 10:21 MCHC 35 % (32-34) H 07/31/16 10:21 RDW 14.5 % (13.2-15.2) 07/31/16 10:21 Plt Count 317 K/mm3 (140-440) 07/31/16 10:21 Lymph % (Auto) 9.7 % (13.4-35.0) L 07/31/16 10:21 [place] % (Auto) 9.1 % (0.0-7.3) H 07/31/16 10:21 Eos % (Auto) 0.7 % (0.0-4.3) 07/31/16 10:21 Baso % (Auto) 1.1 % (0.0-1.8) 07/31/16 10:21 Lymph # 0.8 K/mm3 (1.2-5.4) L 07/31/16 10:21 [place] # 0.7 K/mm3 (0.0-0.8) 07/31/16 10:21 Eos # 0.1 K/mm3 (0.0-0.4) 07/31/16 10:21 Baso # 0.1 K/mm3 (0.0-0.1) 07/31/16 10:21 Seg Neutrophils % 79.4 % (40.0-70.0) H 07/31/16 10:21 Seg Neutrophils # 6.3 K/mm3 (1.8-7.7) 07/31/16 10:21 PT 13.8 Sec. (12.2-14.9) 07/29/16 10:20 INR 1.07 (0.87-1.13) 07/29/16 10:20 APTT 27.4 Sec. (24.2-36.6) 07/29/16 10:20 Sodium 126 mmol/L (137-145) L 07/31/16 10:21 Potassium 3.5 mmol/L (3.6-5.0) L 07/31/16 10:21 Chloride 91.2 mmol/L (98-107) L 07/31/16 10:21 Carbon Dioxide 24 mmol/L (22-30) 07/31/16 10:21 Anion Gap 14 mmol/L 07/31/16 10:21 BUN 5 mg/dL (9-20) L 07/31/16 10:21 Creatinine 0.4 mg/dL (0.8-1.5) L D 07/31/16 10:21 Estimated GFR > 60 ml/min 07/31/16 10:21 BUN/Creatinine Ratio 12.50 % 07/31/16 10:21 Glucose 108 mg/dL (75-100) H 07/31/16 10:21 Calcium 8.4 mg/dL (8.4-10.2) 07/31/16 10:21 Total Bilirubin 1.10 mg/dL (0.1-1.2) 07/29/16 10:20 AST 19 units/L (5-40) 07/29/16 10:20 ALT 16 units/L (7-56) 07/29/16 10:20 Alkaline Phosphatase 65 units/L (35-129) 07/29/16 10:20 Total Protein 6.3 g/dL (6.3-8.2) 07/29/16 10:20 Albumin 3.4 g/dL (3.9-5) L 07/29/16 10:20 Albumin/Globulin Ratio 1.2 % 07/29/16 10:20 Lipase 24 units/L (13-60) 07/29/16 10:20 Urine Color Straw (Yellow) 07/29/16 13:41 Urine Turbidity Clear (Clear) 07/29/16 13:41 Urine pH 7.0 (5.0-7.0) 07/29/16 13:41 Ur Specific [place] 1.003 (1.003-1.030) 07/29/16 13:41 Urine Protein <15 mg/dl mg/dL (Negative) 07/29/16 13:41 Urine Glucose (UA) Neg mg/dL (Negative) 07/29/16 13:41 Urine Ketones Neg mg/dL (Negative) 07/29/16 13:41 Urine Blood Mod (Negative) 07/29/16 13:41 Urine Nitrite Neg (Negative) 07/29/16 13:41 Urine Bilirubin Neg (Negative) 07/29/16 13:41 Urine Ictotest Negative (Negative) 07/29/16 13:41 Urine Urobilinogen < 2.0 mg/dL (<2.0) 07/29/16 13:41 Ur Leukocyte Esterase Neg (Negative) 07/29/16 13:41 Urine WBC (Auto) < 1.0 /HPF (0.0-6.0) 07/29/16 13:41 Urine RBC (Auto) 5.0 /HPF (0.0-6.0) 07/29/16 13:41 Blood Type A POSITIVE 07/29/16 10:20 Antibody Screen TNR 07/29/16 10:20 VIOLA Antibody Screen Negative 07/29/16 10:20
[2016-07-31] MEDS: LASIX IV ONE ×2 (13:35→13:44)
[2016-07-31] MEDS: COGENTIN PO SCH (22:07)
[2016-07-31] MEDS: RisperDAL PO SCH (22:08)
[2016-08-01 05:08] LABS: Basophils % (Auto) 1.4 % (0.0-1.8); Hematocrit 34.3 % (35.5-45.6); Hemoglobin 12.3 gm/dl (11.8-15.2); Mean Corpuscular HGB Conc 36 % (32-34); Mean Corpuscular Hemoglobin 33 pg (28-32); Mean Corpuscular Volume 92 fl (84-94); Platelet Count 322 K/mm3 (140-440); Red Blood Count 3.72 M/mm3 (3.65-5.03); Red Cell Distribution Width 14.7 % (13.2-15.2)
[2016-08-01 05:25] LABS: Anion Gap 17 mmol/L; Blood Urea Nitrogen 6 mg/dL (9-20); Calcium 8.8 mg/dL (8.4-10.2); Carbon Dioxide 25 mmol/L (22-30); Chloride 92.3 mmol/L (98-107); Glucose 94 mg/dL (75-100); Potassium 3.7 mmol/L (3.6-5.0); Sodium 131 mmol/L (137-145)
[2016-08-01] MEDS: PROTONIX PO SCH (09:12)
--- NOTE | 2016-08-01 09:46 | Discharge Summary ---
Providers - Providers Date of Admission: 07/29/16 13:09 Date of discharge: 08/01/16 Attending physician: STEPHIE ROY 07/30/16 20:24 Consult to Wound/ET Nurse [CONS] Routine Reason For Exam: wound eval Primary care physician: LENS BLOCKER Hospitalization Reason for admission: hyponatremia Condition: Stable Hospital course: 66-year-old male presents to the emergency department via EMS from a local custodial for evaluation of vomiting blood. Per report, the patient had an unwitnessed fall the night prior to admission. On the morning of admission, patient reportedly vomited 2 times containing ??coffee-ground emesis. Patient states that he did vomit twice, but denied seeing any blood. Patient denied pain. There are no other complaints. Patient's H&H remained stable throughout hospitalization. Patient had no evidence of any bleeding. On admission patient was noted to have a sodium of 111. Patient was admitted with a diagnosis of hyponatremia and metabolic encephalopathy. The patient's encephalopathy quickly resolved on day 2 of hospitalization. Patient was also noted to have what appeared to be an inguinal hernia that he states he is aware of and does not want any evaluation or surgical intervention. Patient states that it is being followed up as an outpatient. With regards to the hyponatremia , patient was treated with hypertonic saline then later switched to isotonic saline and also received fluid restriction of 1.2 L. Patient's sodium stabilized at the time of discharge 131 from 111 on admission. Patient's mentation improved back to his baseline. The patient will be discharged back to the custodial. Dedicated discharge time 31 minutes. Disposition: [id number] [facility] Time spent for discharge: 31 - Discharge Diagnoses (1) Metabolic encephalopathy Status: Acute (2) Acute hyponatremia Status: Acute (3) Schizophrenia Status: Chronic Qualifiers: Schizophrenia type: undifferentiated schizophrenia Qualified Code(s): F20.3 - Undifferentiated schizophrenia Core Measure Documentation - Palliative Care Palliative Care/ Comfort Measures: Not Applicable - Core Measures Any of the following diagnoses?: none Exam - Constitutional Vitals: Temp Pulse Resp BP Pulse Ox 97.7 F 60 18 106/58 97 07/31/16 20:00 07/31/16 21:00 07/31/16 20:00 07/31/16 20:00 07/31/16 20:00 General appearance: Present: no acute distress, well-nourished - EENT Eyes: Present: PERRL ENT: hearing intact, clear oral mucosa - Neck Neck: Present: supple, normal ROM - Respiratory Respiratory effort: normal Respiratory: bilateral: CTA - Cardiovascular Heart Sounds: Present: S1 & S2. Absent: rub, click - Extremities Extremities: pulses symmetrical, No edema Peripheral Pulses: within normal limits - Abdominal General gastrointestinal: Present: soft, non-tender, non-distended, normal bowel sounds Male genitourinary: Present: normal - Integumentary Integumentary: Present: clear, warm, dry - Musculoskeletal Musculoskeletal: gait normal, strength equal bilaterally - Psychiatric Psychiatric: appropriate mood/affect, intact judgment & insight - Neurologic Neurologic: CNII-XII intact, moves all extremities Plan Activity: no restrictions Weight Bearing Status: Weight Bear as Tolerated Diet: regular Follow up with: PRIMARY CARE, [Primary Care Provider] - 3-5 Days Forms: Accompanied Note
[2016-08-01 10:47] VITALS: BP 101/53
== END 2016-08-01 17:20 | DRG 643 ==
LOC: ED 09:18 → 4A 13:09 → 3A 14:05 → CC2 15:10
PROVIDERS: ADMIT Internal Medicine; ATTEND Hospitalist
DX: E22.2 Syndrome of inappropriate secretion of antidiuretic hormone (principal); G93.41 Metabolic encephalopathy; K92.2 Gastrointestinal hemorrhage, unspecified; F20.9 Schizophrenia, unspecified; I10 Essential (primary) hypertension; K46.9 Unspecified abdominal hernia without obstruction or gangrene
CPT/HCPCS: 36415; 70450; 72125; 80048; 80051; 80053; 81001; 83690; 84295; 85025; 85610; 85730; 86850; 86900; 86901; 93005; 93010; 96360; C9113; J1940; J7030

== ENCOUNTER 2016-11-28 12:19 | Outpatient (CLI) | payer MEDICARE ==
[2016-11-28 13:18] LABS: Blood Urea Nitrogen 14 mg/dL (9-20)
--- NOTE | 2016-11-28 17:44 | Cat Scan Report ---
FINAL REPORT EXAM: CT ABDOMEN PELVIS W CON HISTORY: SCROTAL MASS TECHNIQUE: CT abdomen and pelvis with oral and intravenous contrast PRIORS: None. FINDINGS: No acute abnormality identified in the visualized portion of the lung bases No focal abnormality seen within the liver parenchyma. Spleen is normal in size and attenuation. 1.4 centimeter right renal cyst noted. There are several left renal cysts the largest measures 1.2 centimeters. No evidence for hydronephrosis bilaterally No peripancreatic inflammatory changes are observed. Abdominal aorta is normal in caliber Urinary bladder is moderately distended. There is a large right inguinal hernia. Multiple small bowel loops are in the hernia sac some of which contain oral contrast material there is some increased mottled density with some of the more distal loops likely reflecting stasis within the involved small bowel along with some edematous mucosal thickening and a partial obstruction is not excluded. IMPRESSION: Large right inguinal hernia containing multiple loops of small bowel. There is suggestion of partial obstruction with stasis seen in some of the more distal small bowel loops. Bilateral renal cysts
== END 2016-11-28 12:20 | disposition home or self-care (01) ==
LOC: CT 12:19
PROVIDERS: ATTEND Urology
DX: K40.90 Unilateral inguinal hernia, without obstruction or gangrene, not specified as recurrent (principal); N28.1 Cyst of kidney, acquired; N49.2 Inflammatory disorders of scrotum
CPT/HCPCS: 36415; 74177; 82565; 84520; Q9967

== ENCOUNTER 2019-04-09 14:02 | Emergency (ER) | payer MEDICARE ==
[2019-04-09 15:13] VITALS: BP 117/57
--- NOTE | 2019-04-09 15:23 | Emergency Department Report ---
ED General Adult HPI - General Chief complaint: Altered Mental Status Stated complaint: MENTAL HEALTH Time Seen by Provider: 04/09/19 15:09 Source: patient Mode of arrival: Ambulatory Limitations: No Limitations - History of Present Illness Initial comments: Patient presents to the emergency department chief complaint of aggressive behavior. Patient is from a local skilled nursing and today he was sent to emergency department because of him throwing an object at a staff member. Patient denies being homicidal suicidal and also denies any auditory or visual hallucinations. Patient states he got frustrated today and threw a bowl of oatmeal at somebody. Patient also states he has hernia that is in his scrotum that is supposed to be repaired in July. Patient denies any scrotal pain. -: unknown Severity scale (0 -10): 0 Consistency: now resolved Improves with: none Worsens with: none Associated Symptoms: denies other symptoms Treatments Prior to Arrival: none - Related Data Home Medications Medication Instructions Recorded Confirmed Last Taken Tamsulosin [Flomax] 0.8 mg PO HS 12/06/16 12/06/16 Unknown ARIPiprazole [Abilify] 15 mg PO QHS 01/02/18 Unknown Divalproex ER [DepaKOTE ER] 250 mg PO BID 01/02/18 Unknown LORazepam [Ativan INJ] 1 mg IM Q8H PRN 01/02/18 Unknown Paliperidone Palmitate [Invega 156 mg IM Q2W 01/02/18 Unknown Sustenna] Quetiapine Fumarate [Quetiapine 200 mg PO QHS 01/02/18 Unknown Fumarate ER] Scopolamine [Transderm-Scop] 1 each TD Q3D 01/02/18 Unknown Sodium Bicarbonate 650 mg PO DAILY 01/02/18 Unknown hydrOXYzine PAMOATE [Vistaril] 50 mg PO TID 01/02/18 Unknown Previous Rx's Medication Instructions Recorded Last Taken Type HYDROcodone/APAP 5-325 [[place] 1 each PO Q6HR PRN #10 tablet 12/09/16 Unknown Rx 5-325 mg TAB] donepeziL [Aricept] 10 mg PO QHS #30 tablet 12/09/16 Unknown Rx Allergies Allergy/AdvReac Type Severity Reaction Status Date / Time No Known Allergies Allergy Unverified 01/02/18 15:30 ED Review of Systems ROS: Stated complaint: MENTAL HEALTH Other details as noted in HPI Comment: All other systems reviewed and negative Constitutional: denies: chills, fever Eyes: denies: eye pain, eye discharge, vision change ENT: denies: ear pain, throat pain Respiratory: denies: cough, shortness of breath, wheezing Cardiovascular: denies: chest pain, palpitations Endocrine: no symptoms reported Gastrointestinal: denies: abdominal pain, nausea, diarrhea Genitourinary: denies: urgency, dysuria Musculoskeletal: denies: back pain, joint swelling, arthralgia Skin: denies: rash, lesions Neurological: denies: headache, weakness, paresthesias Psychiatric: denies: anxiety, depression Hematological/Lymphatic: denies: easy bleeding, easy bruising ED Past Medical Hx - Past Medical History Previous Medical History?: Yes Hx Hypertension: Yes Hx Psychiatric Treatment: Yes (schizophrenia) Hx Dementia: Yes Hx HIV: No Additional medical history: Metabolic encephalopathy, hyponatremia - Surgical History Past Surgical History?: No - Social History Smoking Status: Never Smoker Substance Use Type: None - Medications Home Medications: Home Medications Medication Instructions Recorded Confirmed Last Taken Type Tamsulosin [Flomax] 0.8 mg PO HS 12/06/16 12/06/16 Unknown History HYDROcodone/APAP 5-325 [[place] 1 each PO Q6HR PRN #10 tablet 12/09/16 Unknown Rx 5-325 mg TAB] donepeziL [Aricept] 10 mg PO QHS #30 tablet 12/09/16 Unknown Rx ARIPiprazole [Abilify] 15 mg PO QHS 01/02/18 Unknown History Divalproex ER [DepaKOTE ER] 250 mg PO BID 01/02/18 Unknown History LORazepam [Ativan INJ] 1 mg IM Q8H PRN 01/02/18 Unknown History Paliperidone Palmitate [[place] 156 mg IM Q2W 01/02/18 Unknown History Sustenna] Quetiapine Fumarate [Quetiapine 200 mg PO QHS 01/02/18 Unknown History Fumarate ER] Scopolamine [Transderm-Scop] 1 each TD Q3D 01/02/18 Unknown History Sodium Bicarbonate 650 mg PO DAILY 01/02/18 Unknown History hydrOXYzine PAMOATE [Vistaril] 50 mg PO TID 01/02/18 Unknown History ED Physical Exam - General Limitations: No Limitations General appearance: alert, in no apparent distress - Head Head exam: Present: atraumatic, normocephalic - Eye Eye exam: Present: normal appearance, PERRL, EOMI - ENT ENT exam: Present: mucous membranes moist - Neck Neck exam: Present: normal inspection - Respiratory Respiratory exam: Present: normal lung sounds bilaterally. Absent: respiratory distress - Cardiovascular Cardiovascular Exam: Present: regular rate, normal rhythm. Absent: systolic murmur, diastolic murmur, rubs, gallop - GI/Abdominal GI/Abdominal exam: Present: soft, normal bowel sounds. Absent: distended, tenderness - exam: Present: scrotal swelling (Patient has a direct inguinal hernia that is not incarcerated and reducible) - Extremities Exam Extremities exam: Present: normal inspection - Back Exam Back exam: Present: normal inspection - Neurological Exam Neurological exam: Present: alert, oriented X3 - Psychiatric Psychiatric exam: Present: normal affect, normal mood. Absent: homicidal ideation, suicidal ideation - Skin Skin exam: Present: warm, dry, intact, normal color. Absent: rash ED Course Vital Signs 04/09/19 15:11 Temperature 97.6 F Pulse Rate 79 Respiratory 18 Rate Blood Pressure 117/57 [Left] O2 Sat by Pulse 96 Oximetry ED Medical Decision Making - Medical Decision Making Patient has no homicidal or suicidal ideation and denies auditory visual hallucinations. From a psychiatric perspective the patient has been cleared and does not require any further work-up Patient's reasoning for being in the emergency department is behavior in nature and not psychiatric in nature Critical care attestation.: If time is entered above; I have spent that time in minutes in the direct care of this critically ill patient, excluding procedure time. ED Disposition Clinical Impression: Agitation Disposition: DC-01 TO HOME OR SELFCARE Is pt being admited?: No Does the pt Need Aspirin: No Condition: Stable Instructions: Conduct Disorder (ED) Additional Instructions: return if worse Referrals: [facility] [Provider Group] - 3-5 Days [facility] [Provider Group] - 3-5 Days Time of Disposition: 15:22
== END 2019-04-09 17:08 | disposition home or self-care (01) ==
LOC: ED 14:02
DX: R45.1 Restlessness and agitation (principal); I10 Essential (primary) hypertension; F20.9 Schizophrenia, unspecified; Z79.899 Other long term (current) drug therapy
CPT/HCPCS: 99282

== ENCOUNTER 2019-04-12 19:42 | Emergency (ER) | payer MEDICARE ==
--- NOTE | 2019-04-12 21:02 | Emergency Department Report ---
<LAZARA SIMPSON - Last Filed: 04/13/19 02:11> ED General Adult HPI - General Chief complaint: Medical Clearance Stated complaint: PSYCH EVAL Time Seen by Provider: 04/12/19 20:37 Source: patient, RN/MD, EMS Mode of arrival: Stretcher Limitations: No Limitations - History of Present Illness Initial comments: Patient is a 69-year-old male with a history of dementia sent from [facility] with complaints of agitation and being verbally aggressive towards staff according to EMS report per nursing staff. EMS reports are not readily available. Patient denies any SI or HI. He denies any visual or auditory hallucinations. When asked what brings him to the emergency department he states that the paramedics sent him here. pt denies any complaints. he is asking for something to eat and drink. Patient continues to try to get up out of his bed and is yelling down the hallway. Severity scale (0 -10): 0 - Related Data Home Medications Medication Instructions Recorded Confirmed Last Taken Tamsulosin [Flomax] 0.8 mg PO HS 12/06/16 04/13/19 Unknown ARIPiprazole [Abilify] 15 mg PO QHS 01/02/18 04/13/19 Unknown Divalproex ER [DepaKOTE ER] 250 mg PO BID 01/02/18 04/13/19 Unknown LORazepam [Ativan INJ] 1 mg IM Q8H PRN 01/02/18 04/13/19 Unknown Paliperidone Palmitate [Invega 156 mg IM Q2W 01/02/18 04/13/19 Unknown Sustenna] Quetiapine Fumarate [Quetiapine 200 mg PO QHS 01/02/18 04/13/19 Unknown Fumarate ER] Scopolamine [Transderm-Scop] 1 each TD Q3D 01/02/18 04/13/19 Unknown Sodium Bicarbonate 650 mg PO DAILY 01/02/18 04/13/19 Unknown hydrOXYzine PAMOATE [Vistaril] 50 mg PO TID 01/02/18 04/13/19 Unknown Previous Rx's Medication Instructions Recorded Last Taken Type HYDROcodone/APAP 5-325 [[place] 1 each PO Q6HR PRN #10 tablet 12/09/16 Unknown Rx 5-325 mg TAB] donepeziL [Aricept] 10 mg PO QHS #30 tablet 12/09/16 Unknown Rx Allergies Allergy/AdvReac Type Severity Reaction Status Date / Time No Known Allergies Allergy Unverified 01/02/18 15:30 ED Review of Systems Comment: All other systems reviewed and negative ED Past Medical Hx - Past Medical History Hx Hypertension: Yes Hx Psychiatric Treatment: Yes (schizophrenia) Hx Dementia: Yes Hx HIV: No Additional medical history: Metabolic encephalopathy, hyponatremia - Social History Smoking Status: Current Every Day Smoker - Medications Home Medications: Home Medications Medication Instructions Recorded Confirmed Last Taken Type Tamsulosin [Flomax] 0.8 mg PO HS 12/06/16 04/13/19 Unknown History HYDROcodone/APAP 5-325 [[place] 1 each PO Q6HR PRN #10 tablet 12/09/16 04/13/19 Unknown Rx 5-325 mg TAB] donepeziL [Aricept] 10 mg PO QHS #30 tablet 12/09/16 04/13/19 Unknown Rx ARIPiprazole [Abilify] 15 mg PO QHS 01/02/18 04/13/19 Unknown History Divalproex ER [DepaKOTE ER] 250 mg PO BID 01/02/18 04/13/19 Unknown History LORazepam [Ativan INJ] 1 mg IM Q8H PRN 01/02/18 04/13/19 Unknown History Paliperidone Palmitate [Invega 156 mg IM Q2W 01/02/18 04/13/19 Unknown History Sustenna] Quetiapine Fumarate [Quetiapine 200 mg PO QHS 01/02/18 04/13/19 Unknown History Fumarate ER] Scopolamine [Transderm-Scop] 1 each TD Q3D 01/02/18 04/13/19 Unknown History Sodium Bicarbonate 650 mg PO DAILY 01/02/18 04/13/19 Unknown History hydrOXYzine PAMOATE [Vistaril] 50 mg PO TID 01/02/18 04/13/19 Unknown History ED Physical Exam - General Limitations: No Limitations General appearance: alert, in no apparent distress - Head Head exam: Present: atraumatic, normocephalic - Eye Eye exam: Present: normal appearance, PERRL, EOMI - ENT ENT exam: Present: mucous membranes moist - Respiratory Respiratory exam: Present: normal lung sounds bilaterally. Absent: respiratory distress, wheezes, rales, rhonchi, stridor, chest wall tenderness, accessory muscle use, decreased breath sounds, prolonged expiratory - Cardiovascular Cardiovascular Exam: Present: regular rate, normal rhythm, normal heart sounds. Absent: systolic murmur, diastolic murmur, rubs, gallop - GI/Abdominal GI/Abdominal exam: Present: soft, normal bowel sounds. Absent: distended, tenderness, guarding, rebound, rigid - Neurological Exam Neurological exam: Present: alert, oriented X3 - Psychiatric Psychiatric exam: Present: agitated. Absent: homicidal ideation, suicidal ideation - Skin Skin exam: Present: warm, dry, intact ED Course - Reevaluation(s) Reevaluation #1: 04/12/19 21:10 Patient became aggressive with nursing staff and put his fist up like he was going to harm the nurse, Lance and Vishdon were ordered ED Medical Decision Making - Lab Data Result diagrams: 04/12/19 20:51 04/12/19 20:51 Lab Results 04/12/19 04/12/19 04/12/19 Range/Units 20:51 20:51 20:51 WBC 8.8 (4.5-11.0) K/mm3 RBC 4.00 (3.65-5.03) M/mm3 Hgb 13.2 (11.8-15.2) gm/dl Hct 37.9 (35.5-45.6) % MCV 95 H (84-94) fl MCH 33 H (28-32) pg MCHC 35 H (32-34) % RDW 15.4 H (13.2-15.2) % Plt Count 236 (140-440) K/mm3 Lymph % (Auto) 21.8 (13.4-35.0) % [place] % (Auto) 10.4 H (0.0-7.3) % Eos % (Auto) 1.3 (0.0-4.3) % Baso % (Auto) 1.0 (0.0-1.8) % Lymph # 1.9 (1.2-5.4) K/mm3 [place] # 0.9 H (0.0-0.8) K/mm3 Eos # 0.1 (0.0-0.4) K/mm3 Baso # 0.1 (0.0-0.1) K/mm3 Seg Neutrophils % 65.5 (40.0-70.0) % Seg Neutrophils # 5.8 (1.8-7.7) K/mm3 Sodium 138 (137-145) mmol/L Potassium 3.9 (3.6-5.0) mmol/L Chloride 100.8 (98-107) mmol/L Carbon Dioxide 23 (22-30) mmol/L Anion Gap 18 mmol/L BUN 12 (9-20) mg/dL Creatinine 0.6 L (0.8-1.5) mg/dL Estimated GFR > 60 ml/min BUN/Creatinine Ratio 20 % Glucose 102 H (75-100) mg/dL Calcium 9.4 (8.4-10.2) mg/dL Total Bilirubin < 0.20 (0.1-1.2) mg/dL AST 16 (5-40) units/L ALT < 5 L (7-56) units/L Alkaline Phosphatase 58 (35-129) units/L Total Protein 6.9 (6.3-8.2) g/dL Albumin 3.9 (3.9-5) g/dL Albumin/Globulin Ratio 1.3 % Urine Color (Yellow) Urine Turbidity (Clear) Urine pH (5.0-7.0) Ur Specific [place] (1.003-1.030) Urine Protein (Negative) mg/dL Urine Glucose (UA) (Negative) mg/dL Urine Ketones (Negative) mg/dL Urine Blood (Negative) Urine Nitrite (Negative) Urine Bilirubin (Negative) Urine Urobilinogen (<2.0) mg/dL Ur Leukocyte Esterase (Negative) Urine WBC (Auto) (0.0-6.0) /HPF Urine RBC (Auto) (0.0-6.0) /HPF Salicylates < 0.3 L (2.8-20.0) mg/dL Urine Opiates Screen Urine Methadone Screen Acetaminophen (10.0-30.0) ug/mL Ur Barbiturates Screen Ur Phencyclidine Scrn Ur Amphetamines Screen U Benzodiazepines Scrn Urine Cocaine Screen U Marijuana (THC) Screen Drugs of Abuse Note Plasma/Serum Alcohol (0-0.07) % 04/12/19 04/12/19 04/12/19 Range/Units 20:51 20:51 21:12 WBC (4.5-11.0) K/mm3 RBC (3.65-5.03) M/mm3 Hgb (11.8-15.2) gm/dl Hct (35.5-45.6) % MCV (84-94) fl MCH (28-32) pg MCHC (32-34) % RDW (13.2-15.2) % Plt Count (140-440) K/mm3 Lymph % (Auto) (13.4-35.0) % [place] % (Auto) (0.0-7.3) % Eos % (Auto) (0.0-4.3) % Baso % (Auto) (0.0-1.8) % Lymph # (1.2-5.4) K/mm3 [place] # (0.0-0.8) K/mm3 Eos # (0.0-0.4) K/mm3 Baso # (0.0-0.1) K/mm3 Seg Neutrophils % (40.0-70.0) % Seg Neutrophils # (1.8-7.7) K/mm3 Sodium (137-145) mmol/L Potassium (3.6-5.0) mmol/L Chloride (98-107) mmol/L Carbon Dioxide (22-30) mmol/L Anion Gap mmol/L BUN (9-20) mg/dL Creatinine (0.8-1.5) mg/dL Estimated GFR ml/min BUN/Creatinine Ratio % Glucose (75-100) mg/dL Calcium (8.4-10.2) mg/dL Total Bilirubin (0.1-1.2) mg/dL AST (5-40) units/L ALT (7-56) units/L Alkaline Phosphatase (35-129) units/L Total Protein (6.3-8.2) g/dL Albumin (3.9-5) g/dL Albumin/Globulin Ratio % Urine Color Straw (Yellow) Urine Turbidity Clear (Clear) Urine pH 6.0 (5.0-7.0) Ur Specific [place] 1.006 (1.003-1.030) Urine Protein <15 mg/dl (Negative) mg/dL Urine Glucose (UA) Neg (Negative) mg/dL Urine Ketones Neg (Negative) mg/dL Urine Blood Sm (Negative) Urine Nitrite Neg (Negative) Urine Bilirubin Neg (Negative) Urine Urobilinogen < 2.0 (<2.0) mg/dL Ur Leukocyte Esterase Neg (Negative) Urine WBC (Auto) 2.0 (0.0-6.0) /HPF Urine RBC (Auto) 2.0 (0.0-6.0) /HPF Salicylates (2.8-20.0) mg/dL Urine Opiates Screen Urine Methadone Screen Acetaminophen < 5.0 L (10.0-30.0) ug/mL Ur Barbiturates Screen Ur Phencyclidine Scrn Ur Amphetamines Screen U Benzodiazepines Scrn Urine Cocaine Screen U Marijuana (THC) Screen Drugs of Abuse Note Plasma/Serum Alcohol < 0.01 (0-0.07) % 04/12/19 Range/Units 21:12 WBC (4.5-11.0) K/mm3 RBC (3.65-5.03) M/mm3 Hgb (11.8-15.2) gm/dl Hct (35.5-45.6) % MCV (84-94) fl MCH (28-32) pg MCHC (32-34) % RDW (13.2-15.2) % Plt Count (140-440) K/mm3 Lymph % (Auto) (13.4-35.0) % [place] % (Auto) (0.0-7.3) % Eos % (Auto) (0.0-4.3) % Baso % (Auto) (0.0-1.8) % Lymph # (1.2-5.4) K/mm3 [place] # (0.0-0.8) K/mm3 Eos # (0.0-0.4) K/mm3 Baso # (0.0-0.1) K/mm3 Seg Neutrophils % (40.0-70.0) % Seg Neutrophils # (1.8-7.7) K/mm3 Sodium (137-145) mmol/L Potassium (3.6-5.0) mmol/L Chloride (98-107) mmol/L Carbon Dioxide (22-30) mmol/L Anion Gap mmol/L BUN (9-20) mg/dL Creatinine (0.8-1.5) mg/dL Estimated GFR ml/min BUN/Creatinine Ratio % Glucose (75-100) mg/dL Calcium (8.4-10.2) mg/dL Total Bilirubin (0.1-1.2) mg/dL AST (5-40) units/L ALT (7-56) units/L Alkaline Phosphatase (35-129) units/L Total Protein (6.3-8.2) g/dL Albumin (3.9-5) g/dL Albumin/Globulin Ratio % Urine Color (Yellow) Urine Turbidity (Clear) Urine pH (5.0-7.0) Ur Specific [place] (1.003-1.030) Urine Protein (Negative) mg/dL Urine Glucose (UA) (Negative) mg/dL Urine Ketones (Negative) mg/dL Urine Blood (Negative) Urine Nitrite (Negative) Urine Bilirubin (Negative) Urine Urobilinogen (<2.0) mg/dL Ur Leukocyte Esterase (Negative) Urine WBC (Auto) (0.0-6.0) /HPF Urine RBC (Auto) (0.0-6.0) /HPF Salicylates (2.8-20.0) mg/dL Urine Opiates Screen Presumptive negative Urine Methadone Screen Presumptive negative Acetaminophen (10.0-30.0) ug/mL Ur Barbiturates Screen Presumptive negative Ur Phencyclidine Scrn Presumptive negative Ur Amphetamines Screen Presumptive negative U Benzodiazepines Scrn Presumptive negative Urine Cocaine Screen Presumptive negative U Marijuana (THC) Screen Presumptive negative Drugs of Abuse Note Disclamer Plasma/Serum Alcohol (0-0.07) % - Medical Decision Making Patient is a 69-year-old male with a history of dementia sent from [facility] with complaints of agitation and being verbally aggressive towards staff according to EMS report per nursing staff. EMS reports are not readily available. Patient denies any SI or HI. He denies any visual or auditory hallucinations. When asked what brings him to the emergency department he states that the paramedics sent him here. pt denies any complaints. he is asking for something to eat and drink. Patient continues to try to get up out of his bed and is yelling down the hallway. Patient became aggressive with nursing staff and put his fist up like he was going to harm the nurse, Ativan and Geodon were ordered patient's labs are stable, UA within normal limits, UDS is negative, there is no medical emergency preventing psychiatric evaluation at this time ED Disposition Clinical Impression: Agitation, Dementia with behavioral disturbance Disposition: DC- TO HOME OR SELFCARE Condition: Stable Referrals: PRIMARY CARE, [Primary Care Provider] - 3-5 Days <MANAV SAPP - Last Filed: 04/13/19 12:51> ED Review of Systems ROS: Stated complaint: PSYCH EVAL Other details as noted in HPI ED Course Vital Signs 04/12/19 04/12/19 04/13/19 20:48 21:30 07:00 Temperature 97.6 F 98.7 F Pulse Rate 96 H 98 H Respiratory 20 18 18 Rate Blood Pressure 122/72 124/67 [Right] O2 Sat by Pulse 100 97 98 Oximetry - Reevaluation(s) Reevaluation #2: 04/13/19 12:51 Patient has been accepted to our [facility] unit. ED Medical Decision Making - Lab Data Result diagrams: 04/12/19 20:51 04/12/19 20:51 Critical care attestation.: If time is entered above; I have spent that time in minutes in the direct care of this critically ill patient, excluding procedure time. ED Disposition Is pt being admited?: No Does the pt Need Aspirin: No Time of Disposition: 12:51
[2019-04-12 21:07] LABS: Basophils # (Auto) 0.1 K/mm3 (0.0-0.1); Eosinophils # (Auto) 0.1 K/mm3 (0.0-0.4); Eosinophils % (Auto) 1.3 % (0.0-4.3); Hematocrit 37.9 % (35.5-45.6); Hemoglobin 13.2 gm/dl (11.8-15.2); Lymphocytes # (Auto) 1.9 K/mm3 (1.2-5.4); Lymphocytes % (Auto) 21.8 % (13.4-35.0); Mean Corpuscular HGB Conc 35 % (32-34); Mean Corpuscular Volume 95 fl (84-94); Monocytes # (Auto) 0.9 K/mm3 (0.0-0.8); Monocytes % (Auto) 10.4 % (0.0-7.3); Platelet Count 236 K/mm3 (140-440); Red Cell Distribution Width 15.4 % (13.2-15.2)
[2019-04-12] MEDS ORDERED: LORazepam 2 MG/ML VIAL IM ONE (21:13)
[2019-04-12] MEDS ORDERED: ZIPRASIDONE MESYLATE 20 MG VIAL IM ONE (21:13)
[2019-04-12 21:24] LABS: Alanine Aminotransferase < 5 units/L (7-56); Albumin 3.9 g/dL (3.9-5); BUN/Creatinine Ratio 20; Blood Urea Nitrogen 12 mg/dL (9-20); Calcium 9.4 mg/dL (8.4-10.2); Hemolysis Index 20
[2019-04-12 21:29] LABS: Bilirubin,Urine NEG (Negative); Blood,Urine SM (Negative); Color,Urine Straw (Yellow); Protein,Urine <15 mg/dL mg/dL (Negative); Urobilinogen,Urine < 2.0 mg/dL (<2.0)
[2019-04-12 21:37] LABS: Amphetamine Screen,Urine PRESUMPTIVE NEGATIVE; Benzodiazepines Screen,Urine PRESUMPTIVE NEGATIVE; Cannabinoid Screen,Urine PRESUMPTIVE NEGATIVE; Cocaine Screen,Urine PRESUMPTIVE NEGATIVE; Methadone Screen,Urine PRESUMPTIVE NEGATIVE; Opiate Screen,Urine PRESUMPTIVE NEGATIVE
[2019-04-13 21:03] VITALS: BP 113/66
== END 2019-04-13 23:45 | disposition admitted as inpatient to this hospital (09) ==
LOC: EEVIPCON 19:42 → ED 19:42
DX: R45.1 Restlessness and agitation (principal); F03.91 Unspecified dementia, unspecified severity, with behavioral disturbance; I10 Essential (primary) hypertension; F20.9 Schizophrenia, unspecified; F17.200 Nicotine dependence, unspecified, uncomplicated
CPT/HCPCS: 36415; 80053; 80307; 81001; 85025; 96372; 99284; J2060; J3486; 80164; 80320; G0480

== ENCOUNTER 2019-09-19 21:49 | Emergency (ER) | payer MEDICARE ==
[2019-09-20 02:53] VITALS: BP 124/63
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
== END 2019-09-20 06:04 | disposition home or self-care (01) ==
LOC: ED 21:49
DX: F20.9 Schizophrenia, unspecified (principal); I10 Essential (primary) hypertension; F17.200 Nicotine dependence, unspecified, uncomplicated; Z04.6 Encounter for general psychiatric examination, requested by authority; Z79.899 Other long term (current) drug therapy
CPT/HCPCS: 99282

== ENCOUNTER 2020-07-31 12:43 | Emergency (ER) | payer MEDICARE ==
--- NOTE | 2020-07-31 12:59 | Emergency Department Report ---
HPI - General Time Seen by Provider: 07/31/20 12:48 - HPI HPI: This is a 70-year-old male presents to the emergency department, via EMS from [facility] [place], with a complaint of unresponsiveness and respiratory distress. The patient has a history of Parkinson's disease, schizoaffective disorder, schizophrenia, depression, malnutrition, hypertension. Apparently the patient was found this morning to be nonverbal and nonresponsive with increased respirations and wheezing. EMS also says that the patient recently was diagnosed with a urinary tract infection for which he was on antibiotics. The patient's paperwork includes a DNR. When EMS first arrived the patient had a pulse ox in the low 80s that went up to about 95% on a nonrebreather. He had an Accu-Chek that was about 150. ED Past Medical Hx - Past Medical History Hx Hypertension: Yes Hx Seizures: No Hx Psychiatric Treatment: Yes (schizophrenia) Hx Dementia: Yes Hx HIV: No Additional medical history: Metabolic encephalopathy, hyponatremia - Social History Smoking Status: Current Every Day Smoker - Medications Home Medications: Home Medications Medication Instructions Recorded Confirmed Last Taken Type Tamsulosin [Flomax] 0.8 mg PO HS 12/06/16 04/14/19 Unknown History HYDROcodone/APAP 5-325 [[place] 1 each PO Q6HR PRN #10 tablet 12/09/16 04/14/19 Unknown Rx 5-325 mg TAB] donepeziL [Aricept] 10 mg PO QHS #30 tablet 12/09/16 04/14/19 Unknown Rx Divalproex ER [Depakote ER] 250 mg PO BID 01/02/18 04/14/19 Unknown History LORazepam [Ativan INJ] 1 mg IM Q8H PRN 01/02/18 04/14/19 Unknown History Paliperidone Palmitate [Invega 156 mg IM Q2W 01/02/18 04/14/19 Unknown History Sustenna] Quetiapine Fumarate [Quetiapine 200 mg PO QHS 01/02/18 04/14/19 Unknown History Fumarate ER] Scopolamine [Transderm-Scop] 1 each TD Q3D 01/02/18 04/14/19 Unknown History Sodium Bicarbonate 650 mg PO DAILY 01/02/18 04/14/19 Unknown History hydrOXYzine PAMOATE [Vistaril] 50 mg PO TID 01/02/18 04/14/19 Unknown History ARIPiprazole [Abilify TAB] 20 mg PO QHS #30 tablet 04/22/19 Unknown Rx Divalproex ER [Depakote ER] 500 mg PO 0800 #30 tablet 04/22/19 Unknown Rx ED Review of Systems ROS: Stated complaint: SEPSIS Other details as noted in HPI Comment: Unobtainable due to pts medical conditions Physical Exam - Physical Exam Physical Exam: GENERAL: The patient is ill-appearing and unresponsive. HENT: Normocephalic. Atraumatic. Patient has moist mucous membranes. EYES: Pupils equal but sluggish. NECK: Supple. Trachea is midline. CHEST/LUNGS: Wheezing throughout the chest. Patient has shallow respirations with bradypnea and abdominal retractions. HEART/CARDIOVASCULAR: Regular. There is no tachycardia. There is no murmur. ABDOMEN: Abdomen is soft, nontender. Patient has normal bowel sounds. SKIN: Skin is warm and dry. NEURO: Patient is unresponsive to verbal or tactile stimuli. Not following any commands. MUSCULOSKELETAL: There is no obvious deformity. ED Course - Reevaluation(s) Reevaluation #1: 07/31/20 12:57 During my initial examination the patient appears to have short shallow breaths with abdominal retractions. He is unresponsive to verbal or painful stimuli. His oxygen saturation was at about 88% on room air. He was placed on a nonrebreather and briefly went up into the low 90s. His oxygen saturation then began going down to the 60s. His bradypnea worsened to about 2 to 3 breaths/min. The patient's secured entrance monitor showed significant sinus bradycardia and then the patient went into V. tach and then asystole. The patient was already receiving IV fluid resuscitation and oxygen via nonrebreather. The patient is not a candidate for BiPAP. Given the DNR the patient will not be intubated, received a defibrillation, or chest compressions. Time of called at 12:57 PM. ED Medical Decision Making - Medical Decision Making This patient presents from his [facility] facility after he was found unresponsive in respiratory distress. Apparently patient was recently on Augmentin for a URI and Cipro for a UTI. The patient arrives and he is unresp onsive to verbal or tactile stimuli and not following any commands. Pupils are sluggish but equal. The patient has some wheezing but otherwise he has bradypnea, shallow respirations and abdominal retractions and appears in respiratory distress. The patient was initially hypoxic at the nursing facility but improved with a nonrebreather. The patient was on a nonrebreather in the emergency department and initially his oxygen saturation was about 88% and began to steadily decrease. The patient's initial blood pressure here was 79/56. The patient presents with a DNR. He was receiving an IV fluid bolus for the borderline hypotension. He was already on a nonrebreather and is not a candidate for a BiPAP given his mentation. A code sepsis was ordered. Just as the orders were going in I was notified to return to the bedside as the patient's oxygen saturation continues to decrease and the patient's respiratory status appears to be declining as well. At this time the patient has a heart rate of about 30 bpm. He is breathing about 2-3 times per minute with agonal respirations. The patient appears initially in significant sinus bradycardia, then there was V. tach, followed by atrial fibrillation. There is no palpable pulse to the radial, carotid, or femoral arteries. As the patient is a DNR we did not initiate ACLS protocol. Time of was called at 12:57 PM. I attempted to call the patient's sister who is listed as an emergency contact but the number available says it is no longer connected. We will continue to find other phone numbers to contact family. Critical Care Time: No Critical care attestation.: If time is entered above; I have spent that time in minutes in the direct care of this critically ill patient, excluding procedure time. ED Disposition Clinical Impression: Acute respiratory failure, Cardiac arrest Disposition: DC-20 Is pt being admited?: No
[2020-07-31 13:13] VITALS: BP 79/56
== END 2020-07-31 14:00 ==
LOC: ED 12:43
DX: I46.9 Cardiac arrest, cause unspecified (principal); J96.00 Acute respiratory failure, unspecified whether with hypoxia or hypercapnia; I10 Essential (primary) hypertension; F03.90 Unspecified dementia, unspecified severity, without behavioral disturbance, psychotic disturbance, mood disturbance, and anxiety; F20.9 Schizophrenia, unspecified; F17.200 Nicotine dependence, unspecified, uncomplicated; Z79.899 Other long term (current) drug therapy